=== PATIENT | female | born 1945 | race Caucasian/White ===

== ENCOUNTER → 2018-12-03 | Emergency (ER) | payer OTHER ==
[~2018-12-03] VITALS: Ht 121.9 cm; Wt 53.5 kg
[~2018-12-03] MED LIST: SYNTHROID75 MCG; VISTARIL50 MG PO
== END | disposition home or self-care (01) ==
LOC: ER 22:13
DX: R06.02 Shortness of breath (principal); F41.1 Generalized anxiety disorder

== ENCOUNTER 2020-10-11 16:04 | Emergency (ER) | payer OTHER ==
[~2020-10-11] VITALS: Ht 160 cm; Wt 45.4 kg
[2020-10-11] MEDS ORDERED: LEVO-T25 MCG PO (21:50)
[2020-10-11] MEDS ORDERED: LEVOFLOXACIN500 MG PO (21:50)
[2020-10-11] MEDS ORDERED: LEVOTHYROXINE25 MCG PO (21:51)
== END 2020-10-11 22:04 | disposition home or self-care (01) ==
LOC: ER 16:04
DX: S70.02XA Contusion of left hip, initial encounter (principal); S70.01XA Contusion of right hip, initial encounter; S80.01XA Contusion of right knee, initial encounter; R55 Syncope and collapse; N39.0 Urinary tract infection, site not specified; R31.29 Other microscopic hematuria; G30.8 Other Alzheimer's disease; F02.80 Dementia in other diseases classified elsewhere, unspecified severity, without behavioral disturbance, psychotic disturbance, mood disturbance, and anxiety; W18.09XA Striking against other object with subsequent fall, initial encounter; Y93.89 Activity, other specified; Y92.013 Bedroom of single-family (private) house as the place of occurrence of the external cause; Y99.8 Other external cause status